=== PATIENT | female | born 1975 | race Caucasian/White ===

== ENCOUNTER → 2020-03-25 15:59 | Outpatient (CLI) | payer BC, SELFPAY ==
--- NOTE | ~2020-03-25 | MM_ITS ---
EXAMINATION: MM screening [facility] BI w arian HISTORY: Screening mammogram TECHNIQUE: Craniocaudal and mediolateral oblique 3-D tomosynthesis images were obtained and synthetic 2-D images were generated. CAD analysis was submitted and interpreted. COMPARISON: 02/07/2019, 01/09/2018, 01/03/2013 BREAST PARENCHYMAL COMPOSITION: The breasts are almost entirely fatty. FINDINGS: There is no evidence of suspicious mass, calcification, or architectural distortion to sugg est malignancy in either breast. There has been no suspicious interval change. IMPRESSION: 1. No mammographic evidence of malignancy. 2. Recommend routine screening mammography in one year. BI-RADS Category 1: Negative Reviewed, dictated and finalized at location A.
== END ==
PROVIDERS: PCP Family Medicine Adolescent Medicine; Visit Provider Nurse Practitioner
DX: Z12.31 Encounter for screening mammogram for malignant neoplasm of breast (principal)
CPT/HCPCS: 77063; 77067

== ENCOUNTER → 2021-02-10 10:59 | Outpatient (CLI) | payer BC, SELFPAY ==
--- NOTE | ~2021-02-10 | MM_ITS ---
EXAMINATION: MM diagnostic [facility] BI w arian HISTORY: Family history of breast cancer TECHNIQUE: Additional 3-D tomosynthesis images of the breasts were performed and synthetic 2-D images were generated. CAD analysis was submitted and interpreted. COMPARISON: Comparison to multiple prior studies sequentially, with oldest reviewed study dated 11/2012. BREAST PARENCHYMAL COMPOSITION: Breast composition is almost entirely fatty. FINDINGS: There are no suspicious masses, calcifications or architectural distortion in either breast to suggest malignancy. IMPRESSION: 1. No mammographic evidence for malignancy in either breast. 2. Routine yearly screening mammogram and regular clinical breast examination are recommended. BI-RADS Category 1: Negative Reviewed, dictated and finalized at location A. IMPRESSION: 1. No mammographic evidence for malignancy in either breast. 2. Routine yearly screening mammogram and regular clinical breast examination a re recommended. BI-RADS Category 1: Negative
== END ==
PROVIDERS: PCP Family Medicine Adolescent Medicine; Visit Provider Nurse Practitioner
DX: Z80.3 Family history of malignant neoplasm of breast (principal)
CPT/HCPCS: 77062; 77066; G0279

== ENCOUNTER → 2022-04-05 15:43 | Outpatient (CLI) | payer BC, SELFPAY ==
--- NOTE | ~2022-04-05 | MM_ITS ---
EXAMINATION: MM screening [facility]er BI w arian HISTORY: Screening mammogram, family history of breast cancer in her sister. TECHNIQUE: Craniocaudal and mediolateral oblique 3-D tomosynthesis images were obtained and synthetic 2-D images were generated. CAD analysis was submitted and interpreted. COMPARISON: 02/08/2021, 03/25/2020, 02/07/2019 BREAST PARENCHYMAL COMPOSITION: The breasts are almost entirely fatty. FINDINGS: No suspicious mass, calcification, or architectural distortion are identified in either tianna ast to suggest malignancy. There has been no suspicious interval change. IMPRESSION: 1. No mammographic evidence of malignancy. 2. Recommend routine screening mammography in one year. BI-RADS Category 1: Negative Reviewed, dictated and finalized at location A.
== END ==
PROVIDERS: PCP Family Medicine Adolescent Medicine; Visit Provider Nurse Practitioner
DX: Z12.31 Encounter for screening mammogram for malignant neoplasm of breast (principal)
CPT/HCPCS: 77063; 77067

== ENCOUNTER 2023-01-21 02:52 | Day surgery (SDC) | payer BC, SELFPAY ==
[2023-01-09 10:09] VITALS: BMI 32.7
--- NOTE | 2023-01-18 17:41 | WPDANESEPP ---
Anes - Eval Pre Procedure Procedure: Operation Date: 01/21/23 08:00 Proposed Procedures p Screening Colonoscopy - Grayson Gray MD Date/Time: 01/18/23 17:41 Pre Op Diagnosis: neoplasm screening Patient Data Age: 47 Gender: F Height: 1.63 m Weight: 86.5 kg Allergies Allergy/AdvReac Type Severity Reaction Status Date / Time codeine Allergy Intermediate Other Verified 01/09/23 15:37 Home Medications Medication Instructions Recorded Confirmed Type aspirin 81 mg tablet,delayed 81 mg PO DAILY 11/29/21 01/09/23 History release (Adult Aspirin Regimen) niacin 500 mg tablet,extended 500 mg PO QHS 06/20/22 01/09/23 History release alprazolam 0.25 mg tablet 0.25 mg PO BID PRN anxiety #20 tabs 11/19/22 01/09/23 Rx blood sugar diagnostic (Accu-Chek #100 ea 11/22/22 11/22/22 Rx Keeley Plus test strips) blood-glucose meter (Accu-Chek #1 ea 11/22/22 11/22/22 Rx Keeley Plus Meter) lancets (Accu-Chek Softclix #100 ea 11/22/22 11/22/22 Rx Lancets) norethindrone 1 mg-ethinyl 1 tablet PO DAILY 11/22/22 01/09/23 History estradiol 20 mcg (21)-iron 75 mg (7) tablet (07/20 (28)) rosuvastatin 20 mg tablet 20 mg PO DAILY #90 tabs 11/22/22 01/09/23 Rx empagliflozin 25 mg tablet 25 mg PO DAILY #90 tabs 01/07/23 01/09/23 Rx (Jardiance) cinnamon bark extract 500 mg tablet 500 mg PO DAILY 01/09/23 01/09/23 History escitalopram oxalate 20 mg tablet 20 mg PO DAILY 01/09/23 01/09/23 History fenofibrate 160 mg tablet 160 mg PO DAILY 01/09/23 01/09/23 History green tea extract 500 mg capsule 500 mg PO DAILY 01/09/23 01/09/23 History icosapent ethyl 1 gram capsule 2 g PO BID 01/09/23 01/09/23 History (Vascepa) lisinopril 20 1 tablet PO DAILY 01/09/23 01/09/23 History mg-hydrochlorothiazide 25 mg tablet metformin 500 mg tablet,extended 2,000 mg PO DAILY 01/09/23 01/09/23 History release 24 hr tumeric 100 mg-xander 150 mg-olive 1 cap PO DAILY 01/09/23 01/09/23 History 50 mg-oreg 150 mg-caprylate capsule semaglutide 14 mg tablet (Rybelsus) 14 mg PO DAILY #30 tabs 01/15/23 Rx Patient hx anesthesia problems: post op nausea/vomiting Family hx anesthesia problems: none Results Review: All pre-operative results and documents have been reviewed as part of the pre-operative evaluation. [facility] Past Medical History Medical History (Updated 01/18/23 @ 17:42 by Lyndsay Marks CRNA) Anxiety BMI 35.0-35.9,adult Depression with anxiety Essential (primary) hypertension History of anemia Hypertriglyceridemia Mixed hyperlipidemia PCOS (polycystic ovarian syndrome) Type 2 diabetes mellitus without complications Family History Family History Grandparent Diabetes mellitus Mother Hypertension Diabetes mellitus Hyperlipidemia Father Hypertension Hyperlipidemia Diabetes mellitus Malignant neoplasm of prostate Sibling Breast cancer Hypertension Other Carcinoma of colon Social History Social History Smoking status: Never smoker Second hand tobacco smoke exposure: No Alcohol intake: current Alcohol use details: Socially Substance use: never Substance use type: does not use Lack of Transportation: No Lack of Food: Never True Current Housing: I Have Housing Concerned About Future Housing: No Difficulty Paying Gas/Electric Bills: No Difficulty Paying for Meds: No Currently Unemployed: No Education: Master's Degree or Higher Difficulty w/ Childcare or Family Care: No Living arrangements: with family Occupation/Education: occupation Gender identity (if verbalized by the patient): Female Sexual Orientation (if Verbalized by the Patient): Straight or Heterosexual Spiritual care concerns: No Agree to blood products: No Exam Day of Procedure 01/18/23 17:41
[2023-01-21 06:35] VITALS: BP 110/74; PULSE 113; RESP 18; TEMP 36.1; O2SAT 99; BMI 33.0
[2023-01-21] MEDS: LACTATED RINGERS 1,000 ML 150 ML IV CONT (06:57)
[2023-01-21 06:58] LABS: Glucose Point of Care 238 mg/dl (65-105)
--- NOTE | 2023-01-21 07:35 | P.PNAN_ITS ---
Anes - Eval Final PreProcedure Day of Procedure 01/21/23 07:35 Patient weight: obese Heart: regular rate and rhythm Lungs: clear to auscultation Airway: Mallampati scale class II Neurological: alert and oriented Last oral intake: >/= 8 hours ASA classification: III Emergent: no Anesthetic plan: proceed Anesthesia type and monitoring: general GIVS and standard monitoring Results Review: All pre-operative results and documents have been reviewed as part of the pre- operative evaluation. Informed Consent: The patient's anesthetic plan and its attendant risks and benefits were discussed with the patient/family/POA. Questions were solicited and answers provided to the satisfaction of the patient/family/POA.
--- NOTE | 2023-01-21 07:54 | PM.HPGS ---
History of Present Illness History of Present Illness Consent: Risks, benefits, and alternatives have been discussed and questions answered. Patient agrees to proceed with procedure. Chief complaint: neoplasm screening Narrative: Juany Aguila is a 47 year old female here for first screening colonoscopy Review of Systems Constitutional: Constitutional: Denies headache(s) and Denies weakness Eyes: Eyes: Denies blurry vision ENT: Reports Normal hearing present, Denies headache(s) and Denies neck pain Cardiovascular: Cardiovascular: Denies chest pain and Denies dyspnea Respiratory: Respiratory: Denies dyspnea Gastrointestinal: Gastrointestinal: Reports no additional gastrointestinal complaints Genitourinary: Genitourinary: Denies dysuria Musculoskeletal: Musculoskeletal: Denies neck pain Integumentary/Breasts: Skin/Breast: Denies dry skin Neurologic: Reports Normal hearing present, Denies headache(s) and Denies weakness Psychiatric: Psychiatric: Denies anxiety Endocrine: Endocrine: Denies change in body appearance Hematologic/Lymphatic: Hematologic/Lymphatic: Denies easy bleeding Allergic/Immunologic: Allergic/Immunologic: Denies urticaria PMFSH Past Medical History Medical History (Updated 01/18/23 @ 17:42 by Lyndsay Marks CRNA) Anxiety BMI 35.0-35.9,adult Depression with anxiety Essential (primary) hypertension History of anemia Hypertriglyceridemia Mixed hyperlipidemia PCOS (polycystic ovarian syndrome) Type 2 diabetes mellitus without complications Family History Family History Grandparent Diabetes mellitus Mother Hypertension Diabetes mellitus Hyperlipidemia Father Hypertension Hyperlipidemia Diabetes mellitus Malignant neoplasm of prostate Sibling Breast cancer Hypertension Other Carcinoma of colon Social History Social History Smoking status: Never smoker Second hand tobacco smoke exposure: No Alcohol intake: current Alcohol use details: Socially Substance use: never Substance use type: does not use Lack of Transportation: No Lack of Food: Never True Current Housing: I Have Housing Concerned About Future Housing: No Difficulty Paying Gas/Electric Bills: No Difficulty Paying for Meds: No Currently Unemployed: No Education: Master's Degree or Higher Difficulty w/ Childcare or Family Care: No Living arrangements: with family Occupation/Education: occupation Gender identity (if verbalized by the patient): Female Sexual Orientation (if Verbalized by the Patient): Straight or Heterosexual Spiritual care concerns: No Agree to blood products: No Meds Home Medications and Allergies Home Medications Medication Instructions Recorded Confirmed Type aspirin 81 mg tablet,delayed 81 mg PO DAILY 11/29/21 01/21/23 History release (Adult Aspirin Regimen) niacin 500 mg tablet,extended 500 mg PO QHS 06/20/22 01/21/23 History release alprazolam 0.25 mg tablet 0.25 mg PO BID PRN anxiety #20 tabs 11/19/22 01/21/23 Rx blood sugar diagnostic (Accu-Chek #100 ea 11/22/22 01/21/23 Rx Keeley Plus test strips) blood-glucose meter (Accu-Chek #1 ea 11/22/22 01/21/23 Rx Keeley Plus Meter) lancets (Accu-Chek Softclix #100 ea 11/22/22 01/21/23 Rx Lancets) norethindrone 1 mg-ethinyl 1 tablet PO DAILY 11/22/22 01/21/23 History estradiol 20 mcg (21)-iron 75 mg (7) tablet (07/20 ()) rosuvastatin 20 mg tablet 20 mg PO DAILY #90 tabs 11/22/22 01/21/23 Rx empagliflozin 25 mg tablet 25 mg PO DAILY #90 tabs 01/07/23 01/21/23 Rx (Jardiance) cinnamon bark extract 500 mg tablet 500 mg PO DAILY 01/09/23 01/21/23 History escitalopram oxalate 20 mg tablet 20 mg PO DAILY 01/09/23 01/21/23 History fenofibrate 160 mg tablet 160 mg PO DAILY 01/09/23 01/21/23 History green tea extract 500 mg capsule 500 mg PO DA
[2023-01-21 08:17] VITALS: BP 91/64; PULSE 103; RESP 23; O2SAT 95
[2023-01-21 08:27] VITALS: BP 95/61; PULSE 95; RESP 22; O2SAT 99
[2023-01-21 08:37] VITALS: BP 104/67; PULSE 92; RESP 21; O2SAT 99
== END 2023-01-21 08:41 | disposition home or self-care (01) ==
PROVIDERS: PCP Family Medicine Adolescent Medicine; Visit Provider Internal Medicine Gastroenterology
PROC: 0DJD8ZZ Inspection of Lower Intestinal Tract, Via Natural or Artificial Opening Endoscopic (ICD-10-PCS; CPT 45378; principal; 2023-01-21 08:00)
DX: Z12.11 Encounter for screening for malignant neoplasm of colon (principal); K64.8 Other hemorrhoids; E28.2 Polycystic ovarian syndrome; E11.9 Type 2 diabetes mellitus without complications; F41.8 Other specified anxiety disorders; I10 Essential (primary) hypertension; E78.1 Pure hyperglyceridemia; E78.2 Mixed hyperlipidemia; Z79.82 Long term (current) use of aspirin; E66.9 Obesity, unspecified; Z68.33 Body mass index [BMI] 33.0-33.9, adult; Z79.84 Long term (current) use of oral hypoglycemic drugs
CPT/HCPCS: 45378; 82948; J2704; J7120

== ENCOUNTER → 2023-04-29 15:52 | Outpatient (CLI) | payer BC, SELFPAY ==
--- NOTE | ~2023-04-29 | MM_ITS ---
EXAMINATION: MM screening [facility] BI w arian HISTORY: Screening mammogram, family history of breast cancer in her sister. TECHNIQUE: Craniocaudal and mediolateral oblique 3-D tomosynthesis images were obtained and synthetic 2-D images were generated. CAD analysis was submitted and interpreted. COMPARISON: 04/05/2022, 02/08/2021, 03/25/2020 BREAST PARENCHYMAL COMPOSITION: The breasts are almost entirely fatty. FINDINGS: No suspicious mass, calcification, or architectural distortion are identified in either tianna ast to suggest malignancy. There has been no suspicious interval change. IMPRESSION: 1. No mammographic evidence of malignancy. 2. Recommend routine screening mammography in one year. BI-RADS Category 1: Negative Reviewed, dictated and finalized at location A.
== END ==
PROVIDERS: PCP Family Medicine Adolescent Medicine; Visit Provider Nurse Practitioner
DX: Z12.31 Encounter for screening mammogram for malignant neoplasm of breast (principal)
CPT/HCPCS: 77063; 77067

== ENCOUNTER 2024-01-14 08:55 | Outpatient (CLI) | payer BC, SELFPAY ==
--- NOTE | ~2024-01-14 | US_ITS ---
EXAMINATION: US arterial ankle brachial ind DATE: 01/14/2024 10:04 INDICATION: Other specified signs and symptoms involving the circulatory system. Bilateral feet turn blue and purple and/or cold when standing TECHNIQUE: Segmental pressures and plethysmographic and Doppler waveforms of the brachial and lower e xtremity arteries were obtained. COMPARISON: None. FINDINGS: Right and left brachial artery pressures of 101 mm Hg and 99 mm Hg, respectively, are concordant (nor mal difference <= 30 mmHg). The right ankle-brachial index (DAVID) is 1.04 (normal >= 0.9-1.0). The right great toe-brachial index (TBI) is 0.52 (normal >= 0.65). Arterial Doppler waveforms are biphasic with brisk systolic upstrokes at both right posterior tibial and dorsalis pedis arteries. The left DAVID is 0.99. The left TBI is 0.52. Arterial Doppler waveforms are biphasic with brisk systol ic upstrokes at both left posterior tibial and dorsalis pedis arteries. IMPRESSION: 1. Mild arterial occlusive disease to bilateral lower limbs with borderline bilateral ABIs and mildly decreased bilateral TBIs. Reviewed, dictated and finalized at location A. IMPRESSION: 1. Mild arterial occlusive disease to bilateral lower limbs with borderline elsa ateral ABIs and mildly decreased bilateral TBIs.
== END 2024-01-14 08:56 | disposition home or self-care (01) ==
PROVIDERS: PCP Family Medicine Adolescent Medicine; Referring Provider Nurse Practitioner Family; Visit Provider Nurse Practitioner Family
DX: R09.89 Other specified symptoms and signs involving the circulatory and respiratory systems (principal); I73.9 Peripheral vascular disease, unspecified
CPT/HCPCS: 93922

== ENCOUNTER 2024-05-04 12:00 | Outpatient (CLI) | payer BC, SELFPAY ==
--- NOTE | ~2024-05-04 | MM_ITS ---
EXAMINATION: MM screening helder BI w arian HISTORY: Screening TECHNIQUE: Craniocaudal and mediolateral oblique 3-D tomosynthesis images were obtained and synthetic 2-D images were generated. CAD analysis was submitted and interpreted. COMPARISON: Comparison to multiple prior studies sequentially, with oldest reviewed study dated 01/09. BREAST PARENCHYMAL COMPOSITION: Not Dense: The breasts are almost entirely fatty. FINDINGS: There is no evidence of suspicious mass, calcification, or architectural distortion to sugg est malignancy in either breast. There has been no suspicious interval change. IMPRESSION: 1. No mammographic evidence of malignancy. 2. Recommend routine screening mammography in one year. BI-RADS Category 1: Negative Reviewed, dictated and finalized at location B. [employer]
== END 2024-05-04 12:01 | disposition home or self-care (01) ==
PROVIDERS: PCP Nurse Practitioner Family; Visit Provider Nurse Practitioner Family
DX: Z12.31 Encounter for screening mammogram for malignant neoplasm of breast (principal)
CPT/HCPCS: 77063; 77067

== ENCOUNTER 2025-05-06 15:38 | Outpatient (CLI) | payer BC, SELFPAY ==
--- NOTE | ~2025-05-06 | MM_ITS ---
EXAMINATION: MM screening helder BI w arian HISTORY: Screening TECHNIQUE: Craniocaudal and mediolateral oblique 3-D tomosynthesis images were obtained and synthetic 2-D images were generated. CAD analysis was submitted and interpreted. COMPARISON: Comparison to multiple prior studies sequentially, with oldest reviewed study dated , 02/07/2019 BREAST PARENCHYMAL COMPOSITION: The breasts are almost entirely fatty. FINDINGS: There is no evidence of suspicious mass, calcification, or architectural distortion to suggest malignancy in either breast. IMPRESSION: 1. No mammographic evidence of malignancy. 2. Recommend routine screening mammography in one year. BI-RADS Category 1: Negative Reviewed, dictated and finalized at location B. [employer]
== END 2025-05-06 15:39 | disposition home or self-care (01) ==
PROVIDERS: PCP Obstetrics & Gynecology Gynecology; Visit Provider Nurse Practitioner Family
DX: Z12.31 Encounter for screening mammogram for malignant neoplasm of breast (principal)
CPT/HCPCS: 77063; 77067